=== PATIENT | female | born 1990 | race African-American/Black ===

== ENCOUNTER 2017-05-21 14:57 | Emergency (ER) | payer OTHER ==
[2017-05-21 15:05] VITALS: BP 149/93
[2017-05-21 15:48] LABS: BILIRUBIN,URINE NEG (NEG); CLARITY,URINE CLOUDY; COLOR,URINE YELLOW; GLUCOSE,URINE NEG (NEG); NITRITE,URINE POS (NEG); UROBILINOGEN,URINE 0.2 mg/dL (0.2 mg/dL)
[2017-05-21 15:49] LABS: BACTERIA,URINE MOD /HPF (0-FEW); RBC,URINE >40 /HPF (0-2); SQUAMOUS EPITHELIAL CELL,UR FEW /LPF
--- NOTE | 2017-05-21 15:58 | PHYS DOC ---
Past History Past Medical History: No Pertinent History Past Surgical History: Cholecystectomy Smoking: Cigarettes, Greater than 1 pack/day Alcohol Use: None Drug Use: None Adult General Chief Complaint Chief Complaint: LOWER BACK PAIN OR INJURY [facility] HPI Patient is a pleasant 26-year-old female that does smoke presents with lower back pain and suprapubic pain began 2 days ago. Patient was convinced she was one month ago and had 2 positive tests at home. She admits she's only 5 months , 6+ at this time when she had the positive test. She's had no care she not under the care of a [facility] at this time. 2 days ago patient began having suprapubic pain with urgency and frequency and mild lower back pain with no fevers no chills no trauma. Patient had a little bit of blood on her toilet paper when she wiped today which is why she arrived. Patient denies any night sweats, weight loss, bowel or bladder incontinence, she denies any diarrhea, nausea, vomiting just suprapubic pain. It does not radiate anywhere and nothing makes it worse or better is moderate at this time she works at [employer] and because of her discomfort she was seen and sent over here. Review of Systems Review of Systems Constitutional: Denies fever or chills [] Eyes: Denies change in visual acuity, redness, or eye pain [] HENT: Denies nasal congestion or sore throat [] Respiratory: Denies cough or shortness of breath [] Cardiovascular: No additional information not addressed in [facility] [] GI: Positive for lower abdominal pain for nausea, vomiting, diarrhea or bloody stools : Positive for mild hematuria negative for vaginal discharge, actual clots or bleeding, patient has urgency and frequency but no dysuria[] Musculoskeletal: Positive for lower back pain Integument: Denies rash or skin lesions [] Neurologic: Denies headache, focal weakness or sensory changes [] Endocrine: Denies polyuria or polydipsia [] All other systems were reviewed and found to be within normal limits, except as documented in this note. Allergies Allergies Allergies Coded Allergies Type Severity Reaction Last Updated Verified shellfish derived Allergy Severe 07/06/14 Yes Physical Exam Physical Exam Of the vital signs on the chart at this time patient and be mildly tachycardic Constitutional: Well developed, well nourished, no acute distress, non-toxic appearance. [] Cardiovascular:Heart rate regular rhythm rate below 100 on my exam, no murmur no gallops or rubs noted [] Lungs & Thorax: Bilateral breath sounds clear to auscultation [] Abdomen: Bowel sounds normal, soft, no tenderness, no masses, no pulsatile masses. No right lower quadrant abdominal pain, no Arshad's or McBurney's point tenderness palpation of great Del Real's sign.[] Skin: Warm, dry, no erythema, no rash. [] Back: No tenderness, no CVA tenderness. [] Neurologic: Alert and oriented X 3, normal motor function, Psychologic: Affect normal, judgement normal, mood normal. [] Current Patient Data Vital Signs Vital Signs Date Time Temp Pulse Resp B/P (MAP) Pulse Ox O2 Delivery O2 Flow Rate FiO2 05/21/17 15:05 98.5 110 18 100 Lab Results Laboratory Tests Test 05/21/17 14:15 POC Urine HCG, Qualitative hcg negative (Negative) EKG EKG [] Radiology/Procedures Radiology/Procedures [] Course & Med Decision Making Course & Med Decision Making Pertinent Labs and Imaging studies reviewed. (See chart for details) []On my examination patient has a very soft abdomen with no specific tenderness in the right lower quadrant or suprapubic region. She has no CVA tenderness to palpation she is afebrile although she is tachycardic unclear etiology we will continue to evaluate for signs of ectopic and UTI. Patient's urine test is negative at this time, urinalysis is still pending at this time time is now 3:05 PM Time is now 4:07 PM patient's urine test is negative, patient's urinalysis indicates nitrates, leuk esterase, bacteria, although there is a small contamination with epithelial cells I believe the patient's urine complaints warrant empiric treatment and I'll send the urine for culture. discharge: I've spoken with the patient and/or caregivers. I've explained the patient's condition, diagnosis and treatment plan based on information available to me at this time. I've answered the patient's and/or caregivers questions and addressed any concerns. The patient and/or caregivers have a good understanding the patient's diagnosis, condition and treatment plan as can be expected at this point. Vital signs have been stabilized. The patient's condition is stable for discharge from the emergency department. The patient will pursue further outpatient evaluation with her primary care provider or other designated consulting physician as outlined in the discharge instructions. Patient and/or caregivers are agreeable to this plan of care and follow-up instructions have been explained in detail. The patient and/or caregivers have received these instructions in written format and expressed understanding of these discharge instructions. The patient and her caregivers are aware that if any significant change in condition or worsening of symptoms should prompt him to immediately return to this of the closest emergency department. If an emergent department is not readily available I would encourage him to call 911. Dragon Disclaimer Dragon Disclaimer This electronic medical record was generated, in whole or in part, using a voice recognition dictation system. Departure Departure: Impression: Primary Impression: Urinary tract infection Additional Impression: Abdominal pain Condition: STABLE Referrals: PCPNEIL (PCP) Patient Instructions: Urinary Tract Infection Additional Instructions: discharge: I've spoken with the patient and/or caregivers. I've explained the patient's condition, diagnosis and treatment plan based on information available to me at this time. I've answered the patient's and/or caregivers questions and addressed any concerns. The patient and/or caregivers have a good understanding the patient's diagnosis, condition and treatment plan as can be expected at this point. Vital signs have been stabilized. The patient's condition is stable for discharge from the emergency department. The patient will pursue further outpatient evaluation with her primary care provider or other designated consulting physician as outlined in the discharge instructions. Patient and/or caregivers are agreeable to this plan of care and follow-up instructions have been explained in detail. The patient and/or caregivers have received these instructions in written format and expressed understanding of these discharge instructions. The patient and her caregivers are aware that if any significant change in condition or worsening of symptoms should prompt him to immediately return to this of the closest emergency department. If an emergent department is not readily available I would encourage him to call 911. Scripts Acetaminophen (TYLENOL) 325 Mg Tablet 1-2 TAB PO QID, #30 TAB 2 Refills Prov: CHELSIE MOODY MD 05/21/17 Phenazopyridine Hcl (PYRIDIUM) 200 Mg Tablet 200 MG PO TID for 5 Days, #15 TAB Prov: CHELSIE MOODY MD 05/21/17 Ciprofloxacin Hcl (CIPROFLOXACIN HCL) 500 Mg Tablet 1 TAB PO BID, #20 TAB Prov: CHELSIE MOODY MD 05/21/17 Problem Qualifiers CHELSIE MOODY MD May 21, 2017 15:57
[2017-05-21] MEDS ORDERED: CIPR500T PO (16:10)
[2017-05-21] MEDS ORDERED: PHEN-318 PO (16:10)
[2017-05-21] MEDS ORDERED: ACET325T9 PO (16:10)
[2017-05-21] MEDS ORDERED: CIPROFLOXACIN HCL 500 MG TABLET PO ONE (16:15)
== END 2017-05-21 16:20 | disposition home or self-care (01) ==
LOC: ER 14:57
DX: N39.0 Urinary tract infection, site not specified (principal); F17.210 Nicotine dependence, cigarettes, uncomplicated; Z90.49 Acquired absence of other specified parts of digestive tract; Z91.013 Allergy to seafood
CPT/HCPCS: 81001; 81025; 87086; 99284

== ENCOUNTER 2017-11-21 17:48 | Emergency (ER) | payer OTHER ==
[~2017-11-21] VITALS: Ht 185.4 cm; Wt 83.9 kg
[~2017-11-21 17:48] MED LIST: ACET325T9 PO; CIPR500T PO; PHEN-318 PO
--- NOTE | 2017-11-21 18:15 | EKG ---
[address] [address] Test Date: 2017-11-21 Test Time: 18:08:13 Pat Name: CRISTIAN GHOTRA Department: Room: Gender: F Pipe [employer] Helper: : 1990 Requested By: GÓMEZ ABBASI Order Number: [id number] Reading MD: Montana Jackson MD Measurements Intervals [place] Rate: 101 P: 65 NM: 162 QRS: 68 QRSD: 92 T: 56 QT: 350 QTc: 455 Interpretive Statements SINUS TACHYCARDIA Electronically Signed On 11-23-2017 13:40:20 CDT by Montana Jackson MD
--- NOTE | 2017-11-21 18:17 | PHYS DOC ---
Past History Past Medical History: Anxiety, Asthma, Other Past Surgical History: Cholecystectomy Smoking: Cigarettes, Greater than 1 pack/day Alcohol Use: None Drug Use: None Adult General Chief Complaint Chief Complaint: ANXIETY/PANIC ATTACK HPI HPI 27 yo female presents with chest pain and anxiety. Patient states that she has been having panic attacks more often over the last several weeks. Yesterday she had a panic attack with shortness of breath and anxiety but this will include central chest discomfort. She describes as a throbbing sensation in the middle of her chest. She hadn't had this before and this is very concerning to her. She had difficulty sleeping due to being concerned about that pain. The patient had a similar episode today where she had a panic attack with chest pain so she decided to come to the emergency room. At this time she still rates the pain a 7 out of 10. It is a central throbbing sensation. He denies shortness of breath or diaphoresis. She has had a cough with yellowish sputum for the last 2 days. He denies fever or chills. The patient does not currently take any medications for anxiety or panic attacks. Review of Systems Review of Systems Constitutional: Denies fever or chills [] Eyes: Denies change in visual acuity, redness, or eye pain [] HENT: Denies nasal congestion or sore throat [] Respiratory: Cough with sputum [] Cardiovascular: No additional information not addressed in HPI [] GI: Denies abdominal pain, nausea, vomiting, bloody stools or diarrhea [] : Denies dysuria or hematuria [] Musculoskeletal: Denies back pain or joint pain [] Integument: Denies rash or skin lesions [] Neurologic: Denies headache, focal weakness or sensory changes [] Endocrine: Denies polyuria or polydipsia [] All other systems were reviewed and found to be within normal limits, except as documented in this note. Allergies Allergies Allergies Coded Allergies Type Severity Reaction Last Updated Verified shellfish derived Allergy Severe 07/06/14 Yes Physical Exam Physical Exam Constitutional: Well developed, well nourished, no acute distress, non-toxic appearance. [] HENT: Normocephalic, atraumatic, bilateral external ears normal, oropharynx moist, no oral exudates, nose normal. [] Eyes: PERRLA, EOMI, conjunctiva normal, no discharge. [] Neck: Normal range of motion, no tenderness, supple, no stridor. [] Cardiovascular:Heart rate regular rhythm, no murmur [] Lungs & Thorax: Bilateral breath sounds clear to auscultation [] Abdomen: Bowel sounds normal, soft, no tenderness, no masses, no pulsatile masses. [] Skin: Warm, dry, no erythema, no rash. [] Back: No tenderness, no CVA tenderness. [] Extremities: No tenderness, no cyanosis, no clubbing, ROM intact, no edema. [] Neurologic: Alert and oriented X 3, normal motor function, normal sensory function, no focal deficits noted. [] Psychologic: Affect normal, judgement normal, mood anxious. [] Current Patient Data Vital Signs Vital Signs Date Time Temp Pulse Resp B/P (MAP) Pulse Ox O2 Delivery O2 Flow Rate FiO2 11/21/17 17:55 98.6 100 18 100 Room Air EKG EKG Sinus tachycardia, rate 101, normal axis, no ST elevations or depressions.[] Radiology/Procedures Radiology/Procedures [] Impressions: Preliminary interpretation: No pleural effusions, no focal consolidation, no pneumothorax. Normal chest. Course & Med Decision Making Course & Med Decision Making Pertinent Labs and Imaging studies reviewed. (See chart for details) Patient's chest x-ray is unremarkable. Her EKG is sinus tach at 101 but otherwise unremarkable. Her troponin is negative. Her labs do show significant elevation in white count with a left shift. She does not have a fever. Her urinalysis is negative. Further discussion with the patient reveals that she has dental pain and has had infections due to her poor dentition on the right side off and on for almost a year. In the absence of any other sign of infection , I will assume this is the source. The patient does not have a fever Do not believe she requires admission for this infection. I will start her on Augmentin twice a day for 7 days. We will give her first dose in the ED. she is stable for discharge at this time. If she develops a fever directed her to return to the emergency room immediately for further care. [] Dragon Disclaimer Dragon Disclaimer This electronic medical record was generated, in whole or in part, using a voice recognition dictation system. Departure Departure: Referrals: PCP,NEIL (PCP) GÓMEZ ABBASI DO Nov 21, 2017 18:17
[2017-11-21] MEDS ORDERED: IV NORMAL SALINE 1,000ML 1,000 ML IV ONE (18:30)
[2017-11-21 18:43] LABS: BASO # 0.1 x10^3/uL (0.0-0.2); BASO % 0 % (0-3); EOS # 0.2 x10^3/uL (0.0-0.7); EOS % 1 % (0-3); HEMATOCRIT 30.9 % (36.0-47.0); HEMOGLOBIN 9.9 g/dL (12.0-15.5); LYMPH # 2.1 x10^3/uL (1.0-4.8); LYMPH % 9 % (24-48); MEAN CORPUSCULAR HEMOGLOBIN 20 pg (25-35); MEAN CORPUSCULAR HGB CONC 32 g/dL (31-37); MEAN CORPUSCULAR VOLUME 63 fL (79-100); MONO # 0.6 x10^3/uL (0.0-1.1); MONO % 3 % (0-9); NEUT # 21.9 x10^3uL (1.8-7.7); NEUT % 88 % (31-73); PLATELET COUNT 432 x10^3/uL (140-400); RED BLOOD COUNT 4.91 x10^6/uL (3.50-5.40); WHITE BLOOD COUNT 24.9 x10^3/uL (4.0-11.0)
[2017-11-21 18:56] LABS: ALBUMIN 3.2 g/dL (3.4-5.0); ALBUMIN/GLOBULIN RATIO 0.8 (1.0-1.7); CALCIUM 8.5 mg/dL (8.5-10.1); GFR 79.3; TOTAL BILIRUBIN 0.5 mg/dL (0.2-1.0)
[2017-11-21 19:27] LABS: % BANDS 13 % (0-9); % BASOS 0 % (0-3); % EOS 1 % (0-5); % LYMPHS 13 % (24-48); % MONOS 0 % (0-10); % SEGS 73 % (35-66)
[2017-11-21 19:28] LABS: ANISOCYTOSIS SLIGHT; HELMET CELLS PRESENT; HYPOCHROMIA MOD; MICROCYTOSIS MOD; PLT ESTIMATE INCREASED (ADEQUATE); TARGET CELLS OCC
[2017-11-21] MEDS ORDERED: AMOXICILLIN/K CLAV 875/125MG TABLET. PO ONE (19:45)
[2017-11-21 19:51] LABS: BILIRUBIN,URINE NEG (NEG); CLARITY,URINE CLEAR; COLOR,URINE YELLOW; GLUCOSE,URINE NEG (NEG); NITRITE,URINE NEG (NEG); UROBILINOGEN,URINE 1 mg/dL (0.2 mg/dL)
[2017-11-21 19:52] LABS: BACTERIA,URINE 0 /HPF (0-FEW); RBC,URINE RARE /HPF (0-2); SQUAMOUS EPITHELIAL CELL,UR OCC /LPF; WBC,URINE RARE /HPF (0-4)
[2017-11-21] MEDS ORDERED: KETOROLAC 30 MG/ML VIAL. IV ONE (20:00)
[2017-11-21] MEDS ORDERED: LORazepam 2 MG/ML VIAL IV ONE (20:00)
[2017-11-21] MEDS ORDERED: AMOX1TAB61 PO (20:18)
[2017-11-21 20:27] VITALS: BP 112/73
--- NOTE | 2017-11-21 23:06 | RAD ---
PROCEDURE: CHEST PA LATERAL CLINICAL INDICATION: chest pain, cough
hx smoker, asthma
COMPARISON: 07/01/2010 FINDINGS: No pneumothorax identified. Cardiac and mediastinal contours unremarkable. No pulmonary consolidation or acute airspace disease. No acute osseous abnormalities identified. IMPRESSION: No pulmonary consolidation or acute airspace disease. Electronically signed by: Santo Medina DO (11/21/2017 11:03 PM) [facility]
== END 2017-11-21 20:43 | disposition home or self-care (01) ==
LOC: ER 17:48
DX: F41.0 Panic disorder [episodic paroxysmal anxiety] (principal); R07.89 Other chest pain; K04.7 Periapical abscess without sinus; J45.909 Unspecified asthma, uncomplicated; F17.210 Nicotine dependence, cigarettes, uncomplicated; Z91.013 Allergy to seafood
CPT/HCPCS: 36415; 71046; 80053; 81001; 84484; 85007; 85025; 93005; 96374; 96375; 99285; J1885; J2060; J7030

== ENCOUNTER 2018-04-28 17:57 | Emergency (ER) | payer OTHER ==
[~2018-04-28] VITALS: Ht 185.4 cm; Wt 77.6 kg
[~2018-04-28 17:57] MED LIST changes: +AMOX1TAB61 PO
[2018-04-28] MEDS ORDERED: KETOROLAC 60 MG/2 ML VIAL. IM ONE (18:15)
[2018-04-28 18:54] LABS: HEMATOCRIT 35.3 % (36.0-47.0); HEMOGLOBIN 11.1 g/dL (12.0-15.5); RED BLOOD COUNT 5.34 x10^6/uL (3.50-5.40); RED CELL DISTRIBUTION WIDTH 18.9 % (11.5-14.5); WHITE BLOOD COUNT 11.2 x10^3/uL (4.0-11.0)
--- NOTE | 2018-04-28 18:56 | ED.ADGEN ---
Past History Past Medical History: Anxiety, Asthma, Kidney Stones, Pneumonia, Other Past Surgical History: Cholecystectomy Smoking: Cigarettes, Greater than 1 pack/day Alcohol Use: None Drug Use: None Adult General Chief Complaint Chief Complaint back pain HPI HPI 27 years old female presented to the emergency department with right flank pain associated with the legs pain bilaterally, patient presents stated that she had flulike symptoms for a week prior to this she is complaining of body aches all over and nausea no chest pain no shortness breath no urinary symptoms Review of Systems Review of Systems Constitutional: Denies fever or chills [] Eyes: Denies change in visual acuity, redness, or eye pain [] HENT: Denies nasal congestion or sore throat [] Respiratory: Denies cough or shortness of breath [] Cardiovascular: No additional information not addressed in HPI [] GI: Denies abdominal pain, nausea, vomiting, bloody stools or diarrhea [] : Denies dysuria or hematuria [] Musculoskeletal: Denies back pain or joint pain [] Integument: Denies rash or skin lesions [] Neurologic: Denies headache, focal weakness or sensory changes [] Endocrine: Denies polyuria or polydipsia [] All other systems were reviewed and found to be within normal limits, except as documented in this note. Current Medications Current Medications Current Medications Medications (Trade) Dose Ordered Sig/Jaiden Start Time Stop Time Status Last Admin Dose Admin Ceftriaxone Sodium (Rocephin Im) 1 gm 1X ONCE 04/28/18 19:15 04/28/18 19:16 Ketorolac Tromethamine (Toradol Im) 60 mg 1X ONCE 04/28/18 18:15 04/28/18 18:16 DC 04/28/18 18:51 60 MG Allergies Allergies Allergies Coded Allergies Type Severity Reaction Last Updated Verified shellfish derived Allergy Severe 07/06/14 Yes Physical Exam Physical Exam Constitutional: Well developed, well nourished, no acute distress, non-toxic appearance. [] HENT: Normocephalic, atraumatic, bilateral external ears normal, oropharynx moist, no oral exudates, nose normal. [] Eyes: PERRLA, EOMI, conjunctiva normal, no discharge. [] Neck: Normal range of motion, no tenderness, supple, no stridor. [] Cardiovascular:Heart rate regular rhythm, no murmur [] Lungs & Thorax: Bilateral breath sounds clear to auscultation [] Abdomen: Bowel sounds normal, soft, no tenderness, no masses, no pulsatile masses. [] Skin: Warm, dry, no erythema, no rash. [] Back: No tenderness, + right side CVA tenderness. [] Extremities: No tenderness, no cyanosis, no clubbing, ROM intact, no edema. [] Neurologic: Alert and oriented X 3, normal motor function, normal sensory function, no focal deficits noted. [] Psychologic: Affect normal, judgement normal, mood normal. [] Current Patient Data Vital Signs Vital Signs Date Time Temp Pulse Resp B/P (MAP) Pulse Ox O2 Delivery O2 Flow Rate FiO2 04/28/18 18:05 100.0 119 20 100 Room Air Lab Results Laboratory Tests Test 04/28/18 18:25 04/28/18 18:27 White Blood Count 11.2 x10^3/uL (4.0-11.0) H Red Blood Count 5.34 x10^6/uL (3.50-5.40) Hemoglobin 11.1 g/dL (12.0-15.5) L Hematocrit 35.3 % (36.0-47.0) L Mean Corpuscular Volume 66 fL (79-100) L Mean Corpuscular Hemoglobin 21 pg (25-35) L Mean Corpuscular Hemoglobin Concent 32 g/dL (31-37) Red Cell Distribution Width 18.9 % (11.5-14.5) H Platelet Count 429 x10^3/uL (140-400) H Urine Collection Type Unknown Urine Color Yellow Urine Clarity Clear Urine pH 5.0 Urine Specific [place] 1.015 Urine Protein 30 mg/dl (NEG-TRACE) Urine Glucose (UA) Neg mg/dL (NEG) Urine Ketones (Stick) Neg mg/dL (NEG) Urine Blood Neg (NEG) Urine Nitrite Pos (NEG) Urine Bilirubin Neg (NEG) Urine Urobilinogen Dipstick 0.2 mg/dL (0.2 mg/dL) Urine Leukocyte Esterase Neg (NEG) Urine RBC 0 /HPF (0-2) Urine WBC 1-4 /HPF (0-4) Urine Squamous Epithelial Cells Occ /LPF Urine Bacteria Few /HPF (0-FEW) Urine Mucus Mod /LPF Sodium Level 139 mmol/L (136-145) Potassium Level 3.7 mmol/L (3.5-5.1) Chloride Level 102 mmol/L (98-107) Carbon Dioxide Level 26 mmol/L (21-32) Anion Gap 11 (6-14) Blood Urea Nitrogen 13 mg/dL (7-20) Creatinine 0.9 mg/dL (0.6-1.0) Estimated GFR (Cockcroft-Gault) 89.6 Glucose Level 82 mg/dL (70-99) Calcium Level 9.0 mg/dL (8.5-10.1) Influenza Type A (Rapid) Negative (NEGATIVE) Influenza Type B (Rapid) Negative (NEGATIVE) POC Urine HCG, Qualitative hcg negative (Negative) EKG EKG [] Radiology/Procedures Radiology/Procedures [] Course & Med Decision Making Course & Med Decision Making Pertinent Labs and Imaging studies reviewed. (See chart for details) [] Final Impression Final Impression [] Problems: (1) Abdominal pain Qualifiers: Qualified Codes: R10.10 - Upper abdominal pain, unspecified (2) Pyelonephritis Dragon Disclaimer Dragon Disclaimer This electronic medical record was generated, in whole or in part, using a voice recognition dictation system. ALESSANDRO KAUR MD Apr 28, 2018 18:56
[2018-04-28 19:01] LABS: CREATININE 0.9 mg/dL (0.6-1.0); GFR 89.6; POTASSIUM 3.7 mmol/L (3.5-5.1)
--- NOTE | 2018-04-28 19:04 | RAD ---
Examination: CT of the abdomen pelvis without contrast HISTORY: History of abdominal pain, nausea, right-sided abdominal pain COMPARISON: 03/11/2008 TECHNIQUE: Axial CT images of the abdomen pelvis were performed without contrast. Coronal and sagittal reformats are performed Exposure: One or more of the following individualized dose reduction techniques were utilized for this examination: 1. Automated exposure control 2. Adjustment of the mA and/or kV according to patient size 3. Use of iterative reconstruction technique FINDINGS: The bibasilar lungs are clear. No evidence of free air identified in the abdomen. The visualized noncontrasted liver, spleen, adrenals grossly appears unremarkable. Cholecystectomy clips identified. The stomach is mildly distended. The visualized pancreas grossly appears unremarkable. The small bowel is nondilated. Appendix is normal. There is mild thickened appearance of the wall of the distal transverse colon and the descending colon with minimal surrounding fat stranding. Urinary bladder is mildly distended. Mild thickened appearance of the urinary bladder wall. No evidence of intrarenal collecting system calculi or hydronephrosis. The caliber of the aorta grossly appears unremarkable. IMPRESSION: 1. No evidence of intrarenal collecting system calculi or hydronephrosis. 2. Mild thickened appearance of the wall of the distal transverse colon and the descending colon with minimal surrounding fat stranding probably colitis. 3. Mild thickened appearance of the urinary bladder wall, nonspecific. Correlate for urinary tract infection. Electronically signed by: Yoan Campbell MD (04/28/2018 7:02 PM) [facility]
[2018-04-28 19:05] LABS: BACTERIA,URINE FEW /HPF (0-FEW); BILIRUBIN,URINE NEG (NEG); CLARITY,URINE CLEAR; COLOR,URINE YELLOW; GLUCOSE,URINE NEG (NEG); INFLUENZA A PATIENT NEGATIVE (NEGATIVE); INFLUENZA B PATIENT NEGATIVE (NEGATIVE); NITRITE,URINE POS (NEG); RBC,URINE 0 /HPF (0-2); SQUAMOUS EPITHELIAL CELL,UR OCC /LPF
[2018-04-28 19:06] LABS: UROBILINOGEN,URINE 0.2 mg/dL (0.2 mg/dL)
[2018-04-28] MEDS ORDERED: IBUP800T19 PO (19:10)
[2018-04-28] MEDS ORDERED: CIPR500T94 PO (19:10)
[2018-04-28] MEDS ORDERED: cefTRIAXone IM 1 GM VIAL IM ONE (19:15)
[2018-04-28 19:27] VITALS: BP 135/87
== END 2018-04-28 19:29 | disposition home or self-care (01) ==
LOC: ER 17:57
DX: N12 Tubulo-interstitial nephritis, not specified as acute or chronic (principal); M79.605 Pain in left leg; M79.604 Pain in right leg; F41.9 Anxiety disorder, unspecified; J45.909 Unspecified asthma, uncomplicated; F17.210 Nicotine dependence, cigarettes, uncomplicated; Z87.442 Personal history of urinary calculi; Z90.49 Acquired absence of other specified parts of digestive tract; Z91.013 Allergy to seafood
CPT/HCPCS: 36415; 74176; 80048; 81001; 81025; 85027; 87086; 87804; 96372; 99284; J0696; J1885; 87186

== ENCOUNTER 2020-11-09 18:20 | Emergency (ER) | payer OTHER ==
[~2020-11-09] VITALS: Ht 185.4 cm; Wt 81.0 kg
[~2020-11-09 18:20] MED LIST changes: -CIPR500T PO; +CIPR500T2 PO; +CIPR500T94 PO; +IBUP800T19 PO
[2020-11-09 18:27] VITALS: BP 144/98
== END 2020-11-09 18:45 | disposition left against medical advice (07) ==
LOC: ER 18:20
DX: S51.812A Laceration without foreign body of left forearm, initial encounter (principal); Z53.21 Procedure and treatment not carried out due to patient leaving prior to being seen by health care provider; W25.XXXA Contact with sharp glass, initial encounter; Y93.89 Activity, other specified; Y92.89 Other specified places as the place of occurrence of the external cause; Y99.8 Other external cause status

== ENCOUNTER → 2021-06-04 | Outpatient (CLI) | payer OTHER ==
[2021-06-04 14:46] LABS: BASO % 1 % (0-3); EOS % 1 % (0-3); HEMATOCRIT 35.4 % (36.0-47.0); HEMOGLOBIN 11.3 g/dL (12.0-15.5); LYMPH # 0.7 x10^3/uL (1.0-4.8); LYMPH % 21 % (24-48); MEAN CORPUSCULAR HEMOGLOBIN 25 pg (25-35); MEAN CORPUSCULAR HGB CONC 32 g/dL (31-37); MEAN CORPUSCULAR VOLUME 79 fL (79-100); MONO # 0.4 x10^3/uL (0.0-1.1); MONO % 11 % (0-9); NEUT # 2.2 x10^3uL (1.8-7.7); NEUT % 66 % (31-73); PLATELET COUNT 244 x10^3/uL (140-400); RED CELL DISTRIBUTION WIDTH 17.8 % (11.5-14.5); WHITE BLOOD COUNT 3.3 x10^3/uL (4.0-11.0)
[2021-06-05 19:08] LABS: RUBELLA IGG ANTIBODY 7.08 index (Immune >0.99)
== END ==
LOC: LAB 12:15
PROVIDERS: ATTEND Obstetrics & Gynecology
DX: Z34.91 Encounter for supervision of normal pregnancy, unspecified, first trimester (principal)
CPT/HCPCS: 36415; 84702; 85025; 85660; 86592; 86703; 86762; 86787; 86803; 86850; 86900; 86901; 87340

== ENCOUNTER → 2021-06-07 | Outpatient (CLI) | payer OTHER ==
--- NOTE | 2021-06-08 17:29 | RAD ---
OB ultrasound less than 14 weeks to include transabdominal and transvaginal imaging 06/07/2021 CLINICAL HISTORY: First trimester . Uncertain dates. TECHNIQUE: Using the distended urinary bladder as a sonographic window, a real-time ultrasound examin ation of the pelvis was performed. Additionally in an attempt to better evaluate the uterus and adnex a, a transvaginal ultrasound study was performed. Multiple images were obtained. FINDINGS: A fluid collection which resembles a very early gestational sac is seen within the endometr ial canal of the body/fundus of the uterus. This has a mean sac diameter of 6.2 mm with an estimated gestational age by ultrasound of 5 weeks 2 days plus or minus a standard deviation of 6 days. No yol k sac or embryonic pole is seen to confirm a living IUP at this time. The uterus is otherwise within normal limits. Both ovaries are within normal limits in size and echogenicity. The right ovary measures 4.6 x 2.3 x 2.3 cm in size. The left ovary measures 2.8 x 2.0 x 1.7 cm in size. No adnexal mass is noted. No free fluid is seen. Normal color-flow and pulse Doppler imaging to both ovaries is noted. IMPRESSION: Findings consistent most likely with a very early IUP as discussed above. Electronically signed by: Olvin Ortiz MD (06/08/2021 5:26 PM) [id number]
== END ==
LOC: US 11:01
PROVIDERS: ATTEND Obstetrics & Gynecology
DX: Z34.91 Encounter for supervision of normal pregnancy, unspecified, first trimester (principal)
CPT/HCPCS: 76801; 76817